=== PATIENT | female | born 2005 ===

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

== ENCOUNTER 2025-05-27 10:00 | Outpatient (AMB) | payer MEDICAID, SELFPAY ==
--- NOTE | 2025-05-27 10:15 | MHC.OFFVIS ---
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 States she noticed this lump about 2-3 years ago and at times increases in size. Complaints of mild discomfort at her 5th digit, ulnar side that presents mostly with activity and at times at rest. States lump in both wrist. States with an increase of size of lump she had difficulty moving her wrist. Denies injury. No other treatments, she mentions seen 2 years ago at [facility] however she was told lump was normal. 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 She complains of a mass on the dorsal aspect of her right wrist, which has been present for ~2-3 years. She says this changes in size, and when larger it causes her pain in her small finger & ulnar aspect of her hand, and limited wrist ROM. She also says she has a similar mass in her left wrist, but this is not as bothersome. She also complains of intermittent & occasional numbness in her left hand, which she describes as a zinging or shocking sensation. She is concerned this may be related to her wrist mass. She denies any numbness or tingling. She is here with her 3 month old son. REPLACED BY [facility] Medical History (Updated 05/27/25 @ 12:59 by Shahla Riojas MD) Juvenile polyposis syndrome Juvenile polyposis syndrome Surgical History (Updated 05/27/25 @ 10:19 by PRAVEEN Perez) Hx of section Social History (Updated 05/27/25 @ 10:19 by PRAVEEN Perez) Patient Tobacco Use Status: Never used Tobacco Current occupational status: unemployed Current occupation: right hand dominant Review of Systems Const All systems reviewed & are unremarkable except as noted in HPI and below Physical Exam Vital Signs: BMI result Body Mass Index 19.3 Const General: cooperative, healthy appearing and no acute distress Orientation/consciousness: patient oriented x3 HEENT Head: Yes normocephalic and Yes atraumatic Eyes EOM: EOMs intact bilaterally Resp Effort & Inspection: normal respiratory effort and able to speak in complete sentences Cardio Jugular venous distension: no JVD Skin General skin exam: turgor normal Rashes: no rashes Neuro General: patient oriented x3 Extrem Other: Evaluation of Right Upper Extremity: The patient is alert, oriented, and in no acute distress Neuro: Median, Ulnar, Radial nerves motor and sensory intact and sensation is normal to the tips of all digits Vascular: Cap refill brisk ROM: She can make a fist and extend all her digits No locking or catching Skin: No lacerations or abrasions. General: No Ecchymosis. No Erythema or evidence of infection. There is a fullness on the dorsal aspect of her right wrist. This measures ~ 1.5 cm in diameter, is soft and relatively flat. This soft, as in partially deflated. It is only seen or palpated when the wrist is brought into flexion. She has a similar fullness on dorsal aspect of the left wrist when brought into full flexion Psych Appearance: grossly normal Affect: normal affect Attitude: cooperative Assessment & Plan Assessment & Plan (1) Dorsal wrist ganglion: Code(s): M67.439 - Ganglion, unspecified wrist Category: Medical Plan Assessment & Plan: 1. Right dorsal wrist ganglion Likely partially deflated Measuring ~ 1.5 cm in diameter I educated her about this condition I discussed operative and non-operative treatment options No operative intervention indicated at this time. I explained that the mass needs to be somewhat larger before we could comfortably proceed with surgery She expressed understanding She should massage about the area to work on desensitization IF her symptoms increase in size or severity, she can follow up to discuss a possible aspiration vs surgery Otherwise she can follow up prn Scribed for Shahla Riojas MD by Cornelio Starkey territory sales manager medical, on 05/27/25 at 10:30 AM, EST. Medications: Discontinued bacitracin Discontinued Reason: Patient no longer taking 1 appl topical TID 28 grams 0RF cyclobenzaprine Discontinued Reason: Patient no longer taking 5 mg PO TID 7 days PRN 21 tabs 0RF muscle spasm ondansetron Discontinued Reason: Patient no longer taking 4 mg PO Q8H PRN 20 tabs 0RF nausea and vomiting cefuroxime axetil Discontinued Reason: Patient no longer taking 250 mg PO BID 7 days 14 tabs 0RF Coding Level of Care Code Est Pt Level 4 (81621) Diagnoses Dorsal wrist ganglion M67.439
[2025-05-27 10:21] VITALS: BMI 19.3
--- OUTSIDE RECORDS SUMMARY | 2025-05-27 11:26 | XMS_ITS | Encounter Summary ---
Author Organization [employer] Address [address] [place] [address] [address] [place] [address] Care Team Providers Care Dental Assistant Teacher Name Role Phone Nicolle Catalan MD Primary Care Provider Salena Izaguirre Unavailable Jenni Ernandez Unavailable Reason for Visit * Reason Comments Care Coordination C3CM/AMY Harrison#1- Follow up-LVM Encounter Details Date Type Department Care Team (Latest Contact Info) Description 05/23/2025 Patient Outreach [facility] [address] [place] [address] Nicolle Catalan MD [address] [place] [address] Care Coordination (C3CM/AMY Zavala#1- Follow up-LVM) Social History Tobacco Use Types Packs/Day Years Used Date Smoking Tobacco: Never Smokeless Tobacco: Never Depression Answer Date Recorded Patient Health Questionnaire-9 Score 0 04/07/2025 Patient Health Questionnaire-9 Score 0 04/07/2025 Last PHQ-9: Questionnaire Data Not on file 0 04/07/2025 Housing Stability Answer Date Recorded What is your housing situation today? I have tejal cintron 03/03/[address] you li ve. Do you have problems with any of the following? None of the above 03/03/2025 Food Insecurity Answer Date Recorded Within the past 12 months, y ou worried that your food would run out before you got money to buy more: Never True 03/03/2025 Within the past 12 months,th e food you bought just didn't last and you didn't have enough money to get more: Never True Transportation Answer Date Recorded In the past 12 months, has l ack of transportation kept you from medical appts, meetings, work or from getting things needed for daily living? No 03/03/2025 Utilities Answer Date Recorded In the past 12 months, has t he electric, gas, oil or water company threatened to shut off services in your home? No 03/03/2025 Depression Answer Date Recorded Patient Health Questionnaire-2 Score 0 04/07/2025 Internet Access Answer Date Recorded Internet Access Q1 Yes 03/03/2025 Internet Access Q2 Not on file 03/03/2025 Comments No Sex and Gender Information Value Date Recorded Sex Assigned at Female 05/16/2022 10:18 AM EDT Legal Sex Female 10:18 AM EDT Gender Identity Female 05/16/2022 10:18 AM EDT Sexual Orientation Choose not to disclose 2022 3:53 PM EDT documented as of this encounter Progress Notes * Jenni Ernandez - 05/23/2025 4:15 PM EST CHW Jenni Ernandez placed outbound call to patient / guardian for follow up call. No answer at this time. LVM introducing self from [facility] CM Department. Requested call back. CHW VLM with detailed education of [facility] Located in [facility] with extended clinic hours Mondays through Monday 8:30AM-8:00PM,Fridays 8:30AM-4:30PM, and Saturdays 9AM-1PM as well as patient provided with after-hours line for [facility], , which offer night time triage service and option to transfer to contact and service clerks supervisor provider if needed. CHW reinforced direct contact information for any additional questions or concerns. A follow up call will be placed within 10 days, patient agrees with plan. documented in this encounter Plan of Treatment Not on file documented as of this encounter Visit Diagnoses Not on filedocumented in this encounter Additional Health Concerns Assessment Noted Time PHQ-9 Depression Total Score: 0 04/07/20 25 11:38 AM EDT documented as of this encounter Care Teams Dental Assistant Teacher Relationship Specialty Start Date End Date Nicolle Catalan MD [address] [place] [address] PCP - General Family Medicine 11/15/23 Salena Izaguirre Registered Nurse 03/03/25 Jenni Ernandez 03/03/25 documented as of this encounter
--- OUTSIDE RECORDS SUMMARY | 2025-05-27 11:26 | XMS_ITS ---
Author Organization [employer] Address [address] [place] [address] [address] [place] [address] Care Team Providers Care Summer School Coordinator Name Role Phone Nicolle Catalan MD Primary Care Provider Salena Izaguirre Unavailable Jenni Ernandez Unavailable C3 CM Maternal Advocate Status:Enrolled (Active) Start date:03/03/2025 Enrollment date:03/06/2025 Enrollment reason:ADT Feed Overview HRM ADT- Pt admitted to [facility] on 03/01/25 Case Team Name Relationship Phone Jenni Ernandez(Responsible Staff) [phone] Continued Care and Services Coordination
--- OUTSIDE RECORDS SUMMARY | 2025-05-27 11:26 | XMS_ITS ---
Author Organization [employer] Address [address] [place] [address] [address] [place] [address] Care Team Providers Care Parking Line Painter Name Role Phone Nicolle Catalan MD Primary Care Provider Salena Izaguirre Unavailable [phone] Jenni Ernandez Unavailable C3 CM High Risk Maternity Status:Enrolled (Active) Start date:03/03/2025 Enrollment date:03/06/2025 Enrollment reason:ADT Feed Overview HRM ADT- Pt admitted to [facility] on 03/01/25. Case Team Name Relationship Phone Salena Izaguirre(Responsible Staff) Registered Nurse [phone] Continued Care and Services Coordination
--- OUTSIDE RECORDS SUMMARY | 2025-05-27 11:26 | XMS_ITS | Encounter Summary ---
Author Organization [employer] Address [address] [place] [address] 7t [place] [address] Care Team Providers Care Small Business Banking Officer Name Role Phone Nicolle Catalan MD Primary Care Provider Salena Izaguirre Unavailable Jenni Ernandez Unavailable Reason for Visit * Reason Comments Care Management C3CM follow up call Encounter Details Date Type Department Care Team (Late st Contact Info) Description 05/23/2025 Patient Outreach [facility] MEDICINE [address] [place] [address] Nicolle Catalan MD [address] [place] [address] Care Management (C3CM follow up call) Social History Tobacco Use Types Packs/Day Years [...] as of this encounter Progress Notes * Salena Izaguirre - 05/23/2025 12:13 PM EST WALDO Izaguirre RN placed outbound call to patient. Patient's name, and address confirmed. Patient states is doing well with no recent illnesses or emergency room visits. Flower Pot Press Operator reviewed recent physical with patient. Patient was referred to [facility] ortho surgery and is scheduled for 05/27/25 10am. Patient also made aware that the referral for GI was sent to [facility]. Patient is going to call and schedule an appointment, she is aware to contact Flower Pot Press Operator if she has any difficulties. No further questions or concerns. CM reinforced direct contact information or CHW for any additional questions or concerns. Education provided on Walk-In Urgent Care located in [facility] of [facility]. Patient provided with after-hours line for [facility], , which offer night time triage service and option to transfer to carbon brushes assembler provider if needed. Patient verbalizes understanding, and able to repeat back to chief underwriter. A follow up call will be placed within 1 month, patientagrees with plan. documented in this encounter Miscellaneous Notes * Care Plan - Salena Zina - 05/23/2025 12:13 PM EST Active Medication Concerns Improve Medication Adherence (Progressing) Start: 03/06/25 Expected End: 03/02/26 I will take my vitamin every day for the next 4 weeks by setting a daily phone reminder and tracking my intake on a calendar to help ensure a healthy period. Goal Note No changes in medication. Plan of Care Patient Centered Plan of Care (Progressing) Start: 03/06/25 Expected End: 03/02/26 I will follow my treatment plan by taking my medications as prescribed, attending all follow-up appointments, and tracking my progress over the next 3 months to improve my health and manage my health. Goal Note Flower Pot Press Operator reviewed recent physical with patient. Patient was referred to [facility] ortho surgery and is scheduled for 05/27/25 10am. Patient also made aware that the referral for GI was sent to [facility]. Patient is going to call and schedule an appointment, she is aware to contact Flower Pot Press Operator if she has any difficulties. & & (Progressing) Start: 03/06/25 Expected End: 03/02/26 The patient will attend her check-up within 6 weeks of delivery to monitor recovery andaddress any complications. I will follow my care plan by taking pain medication as prescribed, caring for my incision, and gradually increasing my physical activity for the next 6 weeks to promote healing and a smooth recovery, with a follow-up check-in with my provider. documented in this encounter Plan of Treatment Not on file documented as of this encounter Visit Diagnoses Not on filedocumented in this encounter Additional Health Concerns Assessment Noted Time PHQ-9 Depression Total Score: 0 04/07/20 25 11:38 AM EDT documented as of this encounter Care Teams Small Business Banking Officer Relationship Specialty Start Date End Date Nicolle Catalan MD [address] [place] [id number] PCP - General Family Medicine 11/15/23 Salena Izaguirre Registered Nurse 03/03/25 Jenni Ernandez 03/03/25 documented as of this encounter
--- OUTSIDE RECORDS SUMMARY | 2025-05-27 11:26 | XMS_ITS | Encounter Summary ---
Author Organization [employer] Address [address] [place] [address] 7t [place] [address] Care Team Providers Care Printer'S Devil Name Role Phone Nicolle Catalan MD Primary Care Provider [phone] Salena Izaguirre Unavailable Jenni Ernandez Unavailable Reason for Visit * Reason Onset Date Comments Referral 04/23/2025 Encounter Details Date Type Department Care Team (Late st Contact Info) Description 04/23/2025 Telephone [facility] MEDICINE [address] [place], [place] [phone] Nicolle Catalan MD [address] [place], [place] [phone] Referral Social History Tobacco Use Types Packs/Day Years Used Date Smoking Tobacco: Never Smokeless Tobacco: Never Depression Answer Date Recorded Patient Health Questionnaire-9 Score 0 04/07/2025 Patient Health Questionnaire-9 Score 0 04/07/2025 Last PHQ-9: Questionnaire Data Not on file 0 04/07/2025 Housing Stability Answer Date Recorded What is your housing situation today? I have tejal sing 03/03/[address] you li [...] PM EDT documented as of this encounter Miscellaneous Notes * Telephone Encounter - Griffin Bazzi - 04/23/2025 4:13 PM EDT Tc from pt requesting for referral to emergency management program specialist have location modified and changed to [facility] Contact pt at [phone] documented in this encounter Plan of Treatment Not on file documented as of this encounter Visit Diagnoses Not on filedocumented in this encounter Additional Health Concerns Assessment Noted Time PHQ-9 Depression Total Score: 0 04/07/20 11:38 AM EDT documented as of this encounter Care Teams Printer'S Devil Relationship Specialty Start Date End Date Nicolle Catalan MD [address] [place] [address] PCP - General Family Medicine 11/15/23 Salena Izaguirre Registered Nurse 03/03/25 Jenni Ernandez 03/03/25 documented as of this encounter
--- OUTSIDE RECORDS SUMMARY | 2025-05-27 11:26 | XMS_ITS | Encounter Summary ---
Author Organization [employer] Address [address] [place] [address] 7t [place] [address] Care Team Providers Care Recreation Leader Name Role Phone Nicolle Catalan MD Primary Care Provider [phone] Salena Izaguirre Unavailable Awais Jenni Unavailable Reason for Referral * Consultation (Routine) - Canceled Specialty Diagnoses / Procedures Referred By Jayden kaba Referred To Contact Gastroenterology Diagnoses Juvenile polyposis syndrome Irritable bowel syndrome, unspecified type Polyp of colon, unspecified part of colon, unspecified type Nicolle Catalan MD [address] [place] [address] Phone: tel: fax: Referral ID Status Reason Start Date Expiration Date Visits Requested Visits Authorized [id number] Canceled Specialty Services Required 04/24/2025 04/24/2026 1 1 Encounter Details Date Type Department Care Team (Late st Contact Info) Description 04/24/2025 Orders Only [facility] MEDICINE [address] [place] [phone] Nicolle Catalan MD [address] [place], [place] [phone] Juvenile polyposis syndrome (Primary Dx); Irritable bowel syndrome, unspecified type; Polyp of colon, unspecified part of colon, unspecified type Social History Tobacco Use Types Packs/Day Years [...] PM EDT documented as of this encounter Plan of Treatment Scheduled Referrals Name Type Priority Associated Diagnoses Order Schedule Referral to Gastroenterology Outpatient Referral Routine Juvenile polyposis syndrome Irritable bowel syndrome, unspecified type Polyp of colon, unspecified part of colon, unspecified type Expected: 04/24/2025 (Approximate), Expires: 04/24/2026 documented as of this encounter Visit Diagnoses Diagnosis Juvenile polyposis syndrome- Primary Other congenital hamartoses, not elsewhere classified Irritable bowel syndrome, unspecified type Polyp of colon, unspecified part of colon, unspecified type documented in this encounter Additional Health Concerns Assessment Noted Time PHQ-9 Depression Total Score: 0 04/07/20 11:38 AM EDT documented as of this encounter Care Teams Recreation Leader Relationship Specialty Start Date End Date Nicolle Catalan MD [address] [place] [address] PCP - General Family Medicine 11/15/23 Salena Izaguirre Registered Nurse 03/03/25 Jenni Ernandez 03/03/25 documented as of this encounter
--- OUTSIDE RECORDS SUMMARY | 2025-05-27 11:26 | XMS_ITS | Clinical Summary ---
Author Organization [employer] Address [address] [place] [address] 7t [place] [address] Care Team Providers Care Long Goods Drier Name Role Phone Nicolle Catalan MD Primary Care Provider [phone] Salena Izaguirre Unavailable Jenni Ernandez Unavailable Allergies Active Allergy Reactions Criticality Noted Date Comments Cheese Hives Medium 09/23/2022 Latex Hives Medium 09/23/2022 Medications naproxen (Naprosyn) 500 MG tablet Take 1 tablet by mouth twice daily as needed for pain. Take with foods. 60 tablet 08/01/2023 Active multivitamin () 27-0.8 MG tablet Take 1 tablet by mouth Once per day. TAKE 1 TABLET BY MOUTH EVERYDAY 90 tablet 3 07/02/2024 Active Active Problems Problem Noted Date Diagnosed Date Colon polyps 08/01/2023 Assessment & Plan (04/07/2025 1:44 PM EDT): - previously following [facility] Pediatric GI, last seen in January 2021 - no family history - recommended to have a repeat colonoscopy in 2022 Assessment & Plan (08/04/2023 11:55 AM EST): - previously following [facility] Pediatric GI, last seen in January 2021 - no family history - recommended to have a repeat colonoscopy in 2022 Lactose intolerance 11/01/2022 Scoliosis 11/01/2022 IBS (irritable bowel syndrome) 10/27/2022 Assessment & Plan (04/07/2025 1:44 PM EDT): - previously seeing [facility] Pediatric GI, last seen in January 2021 - recommended to have a colonoscopy in 2022; overdue - continue dicyclomine prn - refer to adult GI Assessment & Plan (08/04/2023 11:55 AM EST): - previously seeing [facility] Pediatric GI, last seen in January 2021 - recommended to have a colonoscopy in 2022; overdue - continue dicyclomine prn - refer to adult GI Dermatofibroma 08/02/2022 Juvenile polyposis syndrome 05/02/2012 Resolved Problems Problem Noted Date Diagnosed Date Resolved Date Viral URI 08/11/2022 08/28/2022 Mood altered 08/02/2022 11/01/2022 Dizziness 04/05/2021 08/28/2022 Palpitations 03/05/2021 11/01/2022 Encounters Date Type Department Care Team Description 05/23/2025 Patient Outreach [facility] MEDICINE [address] [place] [phone] Nicolle Catalan MD Care Coordination ([facility] AMY Espinoza#1- Follow up-LVM) 05/23/2025 Patient Outreach [facility] MEDICINE [address] [place] [phone] Nicolle Catalan MD Care Management ([facility] follow up call) 05/09/2025 Patient Outreach [address] [address] Nicolle Catalan MD Care Coordination ([facility] AMY Espinoza- Follow up call) 04/24/2025 Patient Outreach [facility] MEDICINE [address] [place] [phone] Nicolle Catalan MD Care Management ([facility] TC #1-unable to lvm) 04/24/2025 Orders Only [facility] MEDICINE [address] [place] [phone] Nicolle Catalan MD Juvenile polyposis syndrome (Primary Dx); Irritable bowel syndrome, unspecified type; Polyp of colon, unspecified part of colon, unspecified type 04/23/2025 Telephone [facility] MEDICINE [address] [place] [phone] Nicolle Catalan MD Referral 04/17/2025 Patient Outreach [address] [address] Nicolle Catalan MD Care Coordination (Jayashree/AMY Hannah- Follow up call) 04/07/2025 9:30 AM EDT Office Visit [address] [address] Nicolle Catalan MD Juvenile polyposis syndrome (Primary Dx); Irritable bowel syndrome, unspecified type; Polyp of colon, unspecified part of colon, unspecified type; Dermatofibroma; Ganglion cyst of dorsum of right wrist; Encounter for immunization 04/07/2025 Travel 04/04/2025 Telephone [facility]ALK[facility] [address] [place] [phone] Bhargavi Ron MA 04/03/2025 Patient Outreach [address] [address] Nicolle Catalan MD Care Coordination (Jayashree/AMY Zavala- Follow up call) 03/31/2025 Patient Outreach [address] [address] Nicolle Catalan MD Pre-visit Planning (Pre visit planning LVM ) 03/20/2025 Patient Outreach [address] [address] Nicolle Catalan MD Care Coordination (Jayashree/AMY Zavala- Follow up call) 03/20/2025 Patient Outreach [address] [address] Nicolle Catalan MD Care Management (C3 follow up call) 03/06/2025 Patient Outreach [address] [address] Nicolle Catalan MD 03/06/2025 Patient Outreach [address] [address] Nicolle Catalan MD 03/06/2025 Plan of Care Documentation [address] [address] 03/06/2025 Patient Outreach [address] [address] Nicolle Catalan MD Care Management ([facility] initial assessment/enrollmen t) 03/05/2025 Patient Outreach [address] [address] Nicolle Catalan MD Care Coordination (Jayashree/AMY Zavala- initial assessment appt reminder) 03/05/2025 Patient Outreach [address] [address] Nicolle Catalan MD Transition Of Care (Tcm) (HDF unscheduled ) 03/04/2025 Patient Outreach [address] [address] Nicolle Catalan MD 03/03/2025 Patient Outreach [address] [address] Nicolle Catalan MD Care Coordination ([facility]/AMY Zavala ADT HRM Outreach-Agrees to particiapte) 03/03/2025 Patient Outreach [address] [address] Nicolle Catalan MD Care Coordination ([facility]/HERLINDA Ernandez, Chart Review) 03/03/2025 Patient Outreach [address] [address] Nicolle Catalan MD Care Management ([facility] chart review) 03/03/2025 Patient Outreach [address] [address] Nicolle Catalan MD from Last 3 Months Immunizations Immunization Administration Dates Next Due DTaP 04/02/2009, 6,2005,06/30,2005 HPV 9-Valent 08/17/2017,11/03/2016 Hep A, ped/adol, 2 dose 01/30/2009,09/13/2007 Hep B, Adolescent or Pediatric 6,2005,2005,02/25 Hib (HbOC) 06/02/2006, 6,2005,04/29 IPV 04/02/2009, 6,2005,04/29 Influenza injectable quadriv alent preservative free 08/01/2023,05/11/2021,06/04/2019,08/17 Influenza, IIV3, injectable 04/05/2011,0 08/11/2009,07/09/2009,06/02 Influenza, live, intranasal 05/02/2012 Influenza, seasonal, injecta ble, preservative free 04/07/2025 MMR 04/02/2009,03/03/2006 Meningococcal MCV4P ACYW-135 05/11/2021,11/04/19 Pneumococcal Conjugate PCV 13 02/16/2010 Pneumococcal Conjugate PCV 7 06/02/2006, 2005,2005,04/29 Tdap 11/03/2016 Varicella 04/02/2009,03/03/2006 Social History Tobacco Use Types Packs/Day Years [...] not to disclose 2022 3:53 PM EDT Last Filed Vital Signs Vital Sign Reading Time Taken Comments Blood Pressure 110/70 04/07/2025 9:24 AM EDT Pulse 74 04/07/2025 9:24 AM EDT Temperature 36 C (96.8 F) 04/07/2025 9:24 AM EDT Respiratory Rate 17 04/07/2025 9:24 AM EDT Oxygen Saturation 99% 04/07/2025 9:24 AM EDT Inhaled Oxygen Concentration - - Weight 58.9 kg (129 lb 12.8 oz) 04/07/2025 9:24 AM EDT Height 172.4 cm (5' 7.86 ) 04/07/2025 9:24 AM ED T Body Mass Index 19.82 04/07/2025 9:24 AM EDT Plan of Treatment Health Maintenance Due Date Last Done Comments Family Planning (PISQ) 02/26/2020 Meningococcal B Vaccine (1 of 2 - Standard) 2021 COVID-19 Vaccine ( - season) 2025 04/07/2021, 03/17/2021 HIV Screening 08/28/2025 Hepatitis C Screening 08/29/2025 Chlamydia and Gonorrhea Screening 09/26/2025 09/26/2024 SDOH Screening 03/03/2026 03/03/2025 Alcohol/Substance Use Screening 03/06/2026 03/06/2025 Depression Screening 04/07/2026 04/07/2025, 03/06/20 Disability Screening 04/07/2026 04/07/2025 Tobacco Screening 04/14/2026 04/14/2025 DTaP/Tdap/Td Vaccines (8 - Td or Tdap) 12/12/2034 12/12/2024, 11/03/2016, 04/02/2009, Additional history exists Zoster Vaccines (1 of 2) 2055 RSV Patients and Patients Aged 60 years or older (1 - 1-dose 75+ series) 02/26/2080 Hepatitis B Vaccines Completed 2005, 2005, 2005, Additional history exists HIB Vaccines Completed 06/02/2006, 08/17, 2005, Additional history exists Hepatitis A Vaccines Completed 01/30/2009, 09/13/19 08 IPV Vaccines Completed 04/02/2009, 08/17, 2005, Additional history exists Pneumococcal Vaccine: Pediatrics (0 to 5 Years) and At-Risk Patients (6 to 49) Years Completed 02/16/2010, 06/02/2006, 2005, Additional history exists HPV Vaccines Completed 08/17/2017, 11/03/2016 Meningococcal Vaccine Completed 05/11/2021, 017 Influenza Vaccine Completed 04/07/2025, , 08/01/2023, Additional history exists RSV under 20 months Aged Out No longe r eligible based on patient's age to complete this topic Rotavirus Vaccines Aged Out No longer eligible based on patient's age to complete this topic Insurance [facility] C3 [facility] C3 Care Teams Long Goods Drier Relationship Specialty Start Date End Date Nicolle Catalan MD [address] [place] [phone] PCP - General Family Medicine 11/15/23 Salena Izaguirre Registered Nurse 03/03/25 Jenni Ernandze 03/03/25
== END 2025-05-27 11:29 | disposition home or self-care (01) ==
LOC: HO.HOS 10:01
PROVIDERS: Visit Provider Orthopaedic Surgery
DX: M67.431 Ganglion, right wrist (principal)
CPT/HCPCS: 99204

== ENCOUNTER → 2025-05-27 10:00 | Outpatient (BNVA) | payer MEDICAID, SELFPAY | PROVIDERS: Visit Provider Orthopaedic Surgery | DX: M67.431 Ganglion, right wrist (principal) | CPT/HCPCS: 99202 ==